=== PATIENT | female | born 1980 ===

== ENCOUNTER 2025-04-01 07:42 | Outpatient (CLI) | payer MEDICAID ==
[2025-04-01] VITALS (21 sets, daily range): BP systolic 111–146; BP diastolic 82–107; PULSE 93–121
== END 2025-04-01 23:59 | disposition home or self-care (01) ==
LOC: CARD DIAG 07:42
PROVIDERS: ATTEND Internal Medicine Cardiovascular Disease
DX: R00.0 Tachycardia, unspecified (principal); I10 Essential (primary) hypertension; I20.9 Angina pectoris, unspecified
CPT/HCPCS: 93660